=== PATIENT | male | born 1990 | race Caucasian/White ===

== ENCOUNTER 2016-10-02 22:30 | Emergency (ER) | payer MEDICAID ==
[2016-10-02 22:56] VITALS: BP 148/91
[2016-10-02] MEDS ORDERED: Ketorolac 60 MG/2 ML SDV IM ONE (23:04)
--- NOTE | 2016-10-02 23:06 | EDM.PDOC ---
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: Reports: NSAIDS right knee Pain Score (Numeric/FACES): 10 - Related Data Allergies Allergy/AdvReac Type Severity Reaction Status Date / Time codeine Allergy Hives Verified 10/02/16 23:33 Home Meds: Home Meds NK [No Known Home Meds] 02/07/16 [History] Past Medical History - Past Health History Medical/Surgical History: Denies Medical/Surgical History Social & Family History - Tobacco Use Smoking Status *Q: Current Every Day Smoker Years of Tobacco use: 8 Packs/Tins Daily: 0.5 Used Tobacco, but Quit: No Second Hand Smoke Exposure: Yes - Caffeine Use Caffeine Use: Reports: None - Alcohol Use Days Per Week of Alcohol Use: 0 - Recreational Drug Use Recreational Drug Use: No Review of Systems - Review of Systems Review Of Systems: See Below Musculoskeletal: Reports: Joint Pain (The pain) Neurological: Reports: No Symptoms ED EXAM, GENERAL - Physical Exam Exam: See Below Free Text/Narrative:: Examination right knee on appreciate any erythema there is no edema noted does not tolerate much on exam he has joint line tenderness lateral aspect will not tolerate an anterior drawer Mendiola or valgus maneuvers Exam Limited By: No Limitations General Appearance: Alert, WD/WN, No Apparent Distress Course - Vital Signs Last Recorded V/S: Last Vital Signs Temp 99.1 F 10/02/16 22:54 Pulse 90 10/02/16 22:54 Resp 20 10/02/16 22:54 BP 148/91 H 10/02/16 22:54 Pulse Ox 95 10/02/16 22:54 - Orders/Labs/Meds Orders: Active Orders 24 hr Category Date Time Status Knee 3V Rt [CR] Stat Exams 10/02/16 23:04 Taken Meds: Medications Discontinued Medications Generic Name Dose Route Start Last Admin Trade Name Freq PRN Reason Stop Dose Admin Ketorolac Tromethamine 60 mg 10/02/16 23:04 10/02/16 23:34 Toradol IM 10/02/16 23:05 60 mg ONETIME ONE Administration Departure - Departure Time of Disposition: 00:02 Disposition: Home, Self-Care 01 Condition: Fair Clinical Impression: Strain of right knee Qualifiers: Encounter type: initial encounter Qualified Code(s): S86.911A - Strain of unspecified muscle(s) and tendon(s) at lower leg level, right leg, initial encounter - Discharge Information Forms: ED Department Discharge Additional Instructions: Use ibuprofen for baseline pain control, use hydrocodone for breakthrough pain, orthopedics will call you for follow-up appointment - My Orders Last 24 Hours: My Active Orders 10/02/16 23:04 Knee 3V Rt [CR] Stat - Assessment/Plan Last 24 Hours: My Active Orders 10/02/16 23:04 Knee 3V Rt [CR] Stat Plan: Assessment Acuity = acute Site and laterality = right knee strain Etiology = secondary to a twisting injury Manifestations = pain Location of injury = Home Lab values = knee x-ray I did review films myself I cannot appreciate any acute process, the official read from radiology is pending Plan He is provided 10 hydrocodone for pain, knee brace and crutches follow-up with orthopedics next, Patient was in agreement with the plan all questions were answered, they were instructed to return to the emergency department or call for worsening symptoms. This note was dictated using [employer] voice recognition software please call with any questions.
--- NOTE | 2016-10-04 09:20 | CR ---
Knee 3V Rt HISTORY: Twisting injury. COMPARISON: None FINDINGS: No fracture or effusion. No bony destructive process. Good joint space preservation.
== END 2016-10-03 00:52 | disposition home or self-care (01) ==
LOC: JP.ED 22:30
DX: S86.911A Strain of unspecified muscle(s) and tendon(s) at lower leg level, right leg, initial encounter (principal); F17.210 Nicotine dependence, cigarettes, uncomplicated; Z88.5 Allergy status to narcotic agent; W18.40XA Slipping, tripping and stumbling without falling, unspecified, initial encounter
CPT/HCPCS: 73562; 96372; 99284; J1885; 99283

== ENCOUNTER 2018-06-19 01:04 | Emergency (ER) | payer MEDICAID ==
[2018-06-19 01:25] VITALS: BP 188/121
--- NOTE | 2018-06-19 01:35 | EDM.PDOC ---
ED HPI GENERAL MEDICAL PROBLEM - General Chief Complaint: ENT Problem Stated Complaint: RIGHT SIDE TOOTHACHE Time Seen by Provider: 06/19/18 01:25 Source of Information: Reports: Patient History Limitations: Reports: No Limitations - History of Present Illness INITIAL COMMENTS - FREE TEXT/NARRATIVE: 28-year-old male with right mandibular dental pain for the past several weeks since fracturing the posterior aspect of his second canine. Tonight he just couldn't get comfortable, pain is radiating up into the right cheek. No significant swelling or fever. He is taking "lots of ibuprofen". Onset: Gradual Duration: Week(s): (2 weeks) Location: Reports: Face Quality: Reports: Sharp, Stabbing Severity: Moderate Right Lower Jaw Pain Score (Numeric/FACES): 10 - Related Data Allergies Allergy/AdvReac Type Severity Reaction Status Date / Time codeine Allergy Hives Verified 06/19/18 01:15 Home Meds: Home Meds NK [No Known Home Meds] 02/07/16 [History] Past Medical History - Past Health History Medical/Surgical History: Denies Medical/Surgical History HEENT History: Reports: None, Impaired Vision Cardiovascular History: Reports: None Respiratory History: Reports: None Gastrointestinal History: Reports: None Genitourinary History: Reports: Renal Calculus Musculoskeletal History: Reports: None Neurological History: Reports: None Psychiatric History: Reports: Depression Endocrine/Metabolic History: Reports: None Hematologic History: Reports: None Immunologic History: Reports: None Oncologic (Cancer) History: Reports: None Dermatologic History: Reports: None - Infectious Disease History Infectious Disease History: Reports: Chicken Pox - Past Surgical History HEENT Surgical History: Reports: None Cardiovascular Surgical History: Reports: None Respiratory Surgical History: Reports: None GI Surgical History: Reports: None Male Surgical History: Reports: Lithotripsy (ESWL) Endocrine Surgical History: Reports: None Neurological Surgical History: Reports: None Dermatological Surgical History: Reports: None Social & Family History - Tobacco Use Smoking Status *Q: Current Every Day Smoker Years of Tobacco use: 12 Packs/Tins Daily: 0.3 - Caffeine Use Caffeine Use: Reports: Coffee - Recreational Drug Use Recreational Drug Use: No ED ROS ENT - Review of Systems Review Of Systems: See Below Constitutional: Denies: Fever HEENT: Reports: Dental Pain Respiratory: Denies: Shortness of Breath Cardiovascular: Denies: Chest Pain GI/Abdominal: Denies: Nausea, Vomiting Skin: Denies: Erythema Neurological: Reports: Headache ED EXAM, ENT - Physical Exam Exam: See Below Exam Limited By: No Limitations General Appearance: Alert, Mild Distress (Patient is significantly uncomfortable ) Mouth/Throat: Other (The posterior aspect of the second canine on the right mandible is completely broken off, there is some gingival erythema.) Course - Vital Signs Last Recorded V/S: Last Vital Signs Temp 95.9 F 06/19/18 01:24 Pulse 95 06/19/18 01:24 Resp 18 06/19/18 01:24 BP 188/121 H 06/19/18 01:24 Pulse Ox 97 06/19/18 01:24 - Re-Assessments/Exams Free Text/Narrative Re-Assessment/Exam: 06/19/18 01:33 I offered a dental block but the patient is "not a fan of needles". He was started on penicillin VK 500 mg 4 times a day and given 10 hydrocodone for extra pain control. He has an appointment with the dentist in [place] 2 weeks, I offered a referral to our dental clinic but he wanted to wait for his appointment but if he changes his mind to let us know. Departure - Departure Time of Disposition: 01:39 Disposition: Home, Self-Care 01 Condition: Good Clinical Impression: Dental abscess - Discharge Information Instructions: Dental Abscess, [id number] Referrals: PCP,None [Primary Care Provider] - Forms: ED Department Discharge Care Plan Goals: Take antibiotic 4 times a day, continue ibuprofen full dose, and add hydrocodone as prescribed for extra pain control. Consider rechecking in 2-3 days if not improving satisfactorily for a dental appointment that is sooner than your appointment in [place].
== END 2018-06-19 01:40 | disposition home or self-care (01) ==
LOC: JP.ED 01:04
DX: K04.7 Periapical abscess without sinus (principal); F17.210 Nicotine dependence, cigarettes, uncomplicated; Z88.5 Allergy status to narcotic agent
CPT/HCPCS: 99282

== ENCOUNTER 2018-09-20 13:40 | Emergency (ER) | payer MEDICAID ==
[2018-09-20 13:53] VITALS: BP 148/101; PULSE 98
[2018-09-20] MEDS ORDERED: traMADol 50 MG Tab PO ONE (14:22)
--- NOTE | 2018-09-20 14:45 | CRLCR ---
HISTORY: Trauma. TECHNIQUE: Two views of the chest. COMPARISON: No prior. FINDINGS: Mildly shallow inspiration. No consolidation or pulmonary edema. No pneumothorax or pleural effusion. Cardiac size within normal limits. Mild degenerative changes of the spine. Minor anterior wedging of a few lower thoracic vertebral bodies. IMPRESSION: 1. No acute cardiopulmonary disease. 2. Minor anterior wedging of a few lower thoracic vertebral bodies of uncertain chronicity though potentially chronic. Dictated by Harjeet Oh MD @ 09/20/2018 2:44:59 PM Dictated by: Harjeet Oh MD @ 09/20/2018 14:45:04 (Electronically Signed)
--- NOTE | 2018-09-20 15:28 | EDM.PDOC ---
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 pain is at nipple line and radiates around his chest to his back. pain with deep inhalation. generally healthy. no pain on midline of back. Middle Chest Pain Score (Numeric/FACES): 10 - Related Data Allergies Allergy/AdvReac Type Severity Reaction Status Date / Time codeine Allergy Hives Verified 09/20/18 13:55 Home Meds: Home Meds Sertraline [Zoloft] 50 mg PO DAILY 09/20/18 [History] Past Medical History - Past Health History Medical/Surgical History: Denies Medical/Surgical History HEENT History: Reports: None, Impaired Vision Cardiovascular History: Reports: None Respiratory History: Reports: None Gastrointestinal History: Reports: None Genitourinary History: Reports: Renal Calculus Musculoskeletal History: Reports: None Neurological History: Reports: None Psychiatric History: Reports: Depression Endocrine/Metabolic History: Reports: None Hematologic History: Reports: None Immunologic History: Reports: None Oncologic (Cancer) History: Reports: None Dermatologic History: Reports: None - Infectious Disease History Infectious Disease History: Reports: Chicken Pox - Past Surgical History Head Surgeries/Procedures: Reports: Other (See Below) HEENT Surgical History: Reports: None Male Surgical History: Reports: Lithotripsy (ESWL) Neurological Surgical History: Reports: None Dermatological Surgical History: Reports: None Social & Family History - Tobacco Use Smoking Status *Q: Current Every Day Smoker Years of Tobacco use: 15 Packs/Tins Daily: 1 Second Hand Smoke Exposure: No - Caffeine Use Caffeine Use: Reports: Coffee, Energy Drinks, Soda - Recreational Drug Use Recreational Drug Use: No ED ROS GENERAL - Review of Systems Review Of Systems: See Below Constitutional: Denies: Fever, Chills Respiratory: Denies: Shortness of Breath, Wheezing Cardiovascular: Denies: Chest Pain ED EXAM, GENERAL - Physical Exam Exam: See Below Exam Limited By: No Limitations General Appearance: Alert, WD/WN, No Apparent Distress Head: Atraumatic, Normocephalic Neck: Normal Inspection, Supple, Non-Tender, Full Range of Motion Respiratory/Chest: No Respiratory Distress, Lungs Clear, Normal Breath Sounds, No Accessory Muscle Use, Chest Non-Tender, Other (pain on palpation right chest wall at rib 4 and 5). No: Crackles, Rhonchi, Wheezing Cardiovascular: Normal Peripheral Pulses, Regular Rate, Rhythm GI/Abdominal: Normal Bowel Sounds, Soft, Non-Tender Neurological: Alert, Oriented, Normal Cognition, Normal Gait Psychiatric: Normal Affect, Normal Mood Skin Exam: Warm, Dry, Intact, Normal Color Course - Vital Signs Last Recorded V/S: Last Vital Signs Temp 36.6 C 09/20/18 13:52 Pulse 98 09/20/18 13:54 Resp 20 09/20/18 13:54 BP 148/101 H 09/20/18 13:54 Pulse Ox 98 09/20/18 13:54 - Orders/Labs/Meds Meds: Medications Discontinued Medications Generic Name Dose Route Start Last Admin Trade Name Freq PRN Reason Stop Dose Admin Tramadol HCl 100 mg 09/20/18 14:22 09/20/18 14:43 Ultram PO 09/20/18 14:23 100 mg ONETIME ONE Administration Departure - Departure Time of Disposition: 15:25 Disposition: Home, Self-Care 01 Condition: Good Clinical Impression: Chest wall injury Qualifiers: Encounter type: initial encounter Qualified Code(s): S29.9XXA - Unspecified injury of thorax, initial encounter - Discharge Information *PRESCRIPTION DRUG MONITORING PROGRAM REVIEWED*: Not Applicable *COPY OF PRESCRIPTION DRUG MONITORING REPORT IN PATIENT ANTONIET[place]: Not Applicable Instructions: Blunt Chest Trauma Referrals: PCP,None [Primary Care Provider] - Forms: ED Department Discharge Additional Instructions: ice as much as possible over the next 72 hours Ibuprofen 600-800 mg every 6 hours as needed for pain over the next 5 days take Ibuprofen three times daily may also take acetaminophen 1000 mg every 6 hours for break through pain deep breath 2 breathes every hour while a wake
== END 2018-09-20 15:35 | disposition home or self-care (01) ==
LOC: JP.ED 13:40
DX: S29.9XXA Unspecified injury of thorax, initial encounter (principal); F32.9 Major depressive disorder, single episode, unspecified; F17.210 Nicotine dependence, cigarettes, uncomplicated; Z88.5 Allergy status to narcotic agent; Z79.899 Other long term (current) drug therapy; W28.XXXA Contact with powered lawn mower, initial encounter
CPT/HCPCS: 71046; 99284; A9270

== ENCOUNTER 2018-12-21 19:55 | Emergency (ER) | payer MEDICAID ==
[2018-12-21] MEDS ORDERED: Metoprolol Tartrate 50 MG Tab PO ONE (20:30)
[2018-12-21] MEDS ORDERED: Aspirin 81 MG Tab.Chew PO ONE (20:30)
[2018-12-21] MEDS ORDERED: Sodium Chloride 0.9% 10 ML Syringe FLUSH PRN (20:31)
--- NOTE | 2018-12-21 20:37 | EDM.PDOC ---
ED HPI GENERAL MEDICAL PROBLEM - General Chief Complaint: Chest Pain Stated Complaint: CHEST TIGHTNESS,SOB Time Seen by Provider: 12/21/18 20:20 Source of Information: Reports: Patient, Old Records, RN History Limitations: Reports: No Limitations - History of Present Illness INITIAL COMMENTS - FREE TEXT/NARRATIVE: 28 yo morbidly obese, 1 ppd smoker, who has a pHx of both medical non- compliance and a reported WA at age 16(can't tell me why he has this) presents with chest pain that has been progressive since noon today. He has no SOB. Does have mild nausea. Reports numbness of L arm and L leg. No neck or back pain. No calf pain or LE edema. Took ibuprofen about 2 pm without relief. Pain is not affected by deep breathing. Denies cough. Onset: Today Onset Date: 12/21/18 Onset Time: 12:00 Duration: Hour(s):, Getting Worse Location: Reports: Chest, Upper Extremity, Left, Lower Extremity, Left Quality: Reports: Ache Severity: Moderate Improves with: Reports: None Worsens with: Reports: Other (unknown) Context: Reports: Other (see HPI) Associated Symptoms: Reports: Chest Pain, Nausea/Vomiting (no vomiting). 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 Pain Score (Numeric/FACES): 8 - Related Data Allergies Allergy/AdvReac Type Severity Reaction Status Date / Time codeine Allergy Hives Verified 12/21/18 20:13 Home Meds: Home Meds NK [No Known Home Meds] 12/21/18 [History] Past Medical History - Past Health History Medical/Surgical History: Denies Medical/Surgical History HEENT History: Reports: Impaired Vision Cardiovascular History: Reports: [place] Respiratory History: Reports: None Gastrointestinal History: Reports: None Genitourinary History: Reports: Renal Calculus Musculoskeletal History: Reports: None Neurological History: Reports: None Psychiatric History: Reports: Depression Endocrine/Metabolic History: Reports: Obesity/BMI 30+ Hematologic History: Reports: None Immunologic History: Reports: None Oncologic (Cancer) History: Reports: None Dermatologic History: Reports: None - Infectious Disease History Infectious Disease History: Reports: Chicken Pox - Past Surgical History Male Surgical History: Reports: Lithotripsy (ESWL) Social & Family History - Tobacco Use Smoking Status *Q: Current Every Day Smoker Years of Tobacco use: 15 Packs/Tins Daily: 1 - Caffeine Use Caffeine Use: Reports: Coffee, Energy Drinks, Soda - Recreational Drug Use Recreational Drug Use: Yes Recreational Drug Type: Reports: Marijuana/Hashish Recreational Drug Use Frequency: Daily ED ROS GENERAL - Review of Systems Review Of Systems: See Below Constitutional: Reports: No Symptoms HEENT: Reports: No Symptoms Respiratory: Reports: No Symptoms Cardiovascular: Reports: Chest Pain, Blood Pressure Problem (chronic). Denies: Dyspnea on Exertion, Edema, Lightheadedness, Orthopnea, Palpitations, Syncope Endocrine: Reports: No Symptoms GI/Abdominal: Reports: Nausea. Denies: Abdominal Pain, Anorexia, Black Stool, Bloody Stool, Constipation, Diarrhea, Difficulty Swallowing, Distension, Flatus , Hematemesis, Hematochezia, Vomiting : Reports: No Symptoms Musculoskeletal: Reports: No Symptoms Skin: Reports: No Symptoms Neurological: Reports: No Symptoms ED EXAM, GENERAL - Physical Exam Exam: See Below Exam Limited By: No Limitations General Appearance: Alert, WD/WN, No Apparent Distress, Obese Eye Exam: Bilateral Eye: Normal Inspection Ears: Normal External Exam, Normal Canal, Hearing Grossly Normal, Normal TMs Ear Exam: Bilateral Ear: Auricle Normal, Canal Normal, TM normal Nose: Normal Inspection, No Blood Throat/Mouth: Normal Inspection, Normal Lips, Normal Oropharynx, Normal Voice, No Airway Compromise Head: Atraumatic, Normocephalic Neck: Normal Inspection Respiratory/Chest: No Respiratory Distress, Lungs Clear, Normal Breath Sounds, No Accessory Muscle Use, Chest Non-Tender Cardiovascular: Regular Rate, Rhythm, No Edema GI/Abdominal: Normal Bowel Sounds, Soft, Non-Tender, No Distention Back Exam: Normal Inspection. No: CVA Tenderness (R), CVA Tenderness (L) Extremities: Normal Inspection, Normal Range of Motion, Non-Tender, No Pedal Edema Neurological: Alert, Oriented, CN II-XII Intact, Normal Cognition, No Motor/ Sensory Deficits Psychiatric: Normal Affect, Normal Mood Skin Exam: Warm, Dry, Intact, Normal Color, No Rash EKG INTERPRETATION EKG Date: 12/21/18 Time: 20:35 Rhythm: NSR Rate (Beats/Min): [address] [place]: Normal P-Wave: Present QRS: Normal ST-T: Normal QT: Normal Comparison: NA - No Prior EKG Course - Vital Signs Last Recorded V/S: Last Vital Signs Temp 37.5 C 12/21/18 20:15 Pulse 113 H 12/21/18 21:48 Resp 22 H 12/21/18 21:17 BP 136/103 H 12/21/18 21:48 Pulse Ox 95 12/21/18 21:17 - Orders/Labs/Meds Orders: Active Orders 24 hr Category Date Time Status Cardiac Monitoring [RC] .As Directed Care 12/21/18 20:30 Active EKG Documentation Completion [RC] ASDIRECTED Care 12/21/18 20:30 Active Sodium Chloride 0.9% [Saline Flush] Med 12/21/18 20:31 Active 10 ml FLUSH ASDIRECTED PRN Saline Lock Insert [OM.PC] Routine Oth 12/21/18 20:31 Ordered EKG 12 Lead [EK] Routine Ther 12/21/18 20:30 Ordered Medication Orders Sodium Chloride (Saline Flush) 10 ml FLUSH ASDIRECTED PRN PRN Reason: Keep Vein Open Last Admin: 12/21/18 21:05 Dose: 10 ml Labs: Laboratory Tests 12/21/18 12/21/18 12/21/18 Range/Units 20:44 20:44 20:44 WBC 10.3 (4.5-11.0) K/uL RBC 5.05 (4.30-5.90) M/uL Hgb 15.8 H (12.0-15.0) g/dL Hct 46.6 (40.0-54.0) % MCV 92 (80-98) fL MCH 31 (27-31) pg MCHC 34 (32-36) % Plt Count 192 (150-400) K/uL D-Dimer, Quantitative < 100 (0.0-400.0) ng/mL Sodium 142 (140-148) mmol/L Potassium 3.3 L (3.6-5.2) mmol/L Chloride 103 (100-108) mmol/L Carbon Dioxide 26 (21-32) mmol/L Anion Gap 16.3 H (5.0-14.0) mmol/L BUN 15 (7-18) mg/dL Creatinine 1.0 (0.8-1.3) mg/dL Est Cr Clr Drug Dosing 118.56 mL/min Estimated GFR (MDRD) > 60 (>60) Glucose 134 H (74-106) mg/dL Calcium 9.0 (8.5-10.1) mg/dL Magnesium (1.8-2.4) mg/dL Troponin I < 0.017 (0.000-0.056) ng/mL 12/21/18 Range/Units 21:15 WBC (4.5-11.0) K/uL RBC (4.30-5.90) M/uL Hgb (12.0-15.0) g/dL Hct (40.0-54.0) % MCV (80-98) fL MCH (27-31) pg MCHC (32-36) % Plt Count (150-400) K/uL D-Dimer, Quantitative (0.0-400.0) ng/mL Sodium (140-148) mmol/L Potassium (3.6-5.2) mmol/L Chloride (100-108) mmol/L Carbon Dioxide (21-32) mmol/L Anion Gap (5.0-14.0) mmol/L BUN (7-18) mg/dL Creatinine (0.8-1.3) mg/dL Est Cr Clr Drug Dosing mL/min Estimated GFR (MDRD) (>60) Glucose (74-106) mg/dL Calcium (8.5-10.1) mg/dL Magnesium 1.9 (1.8-2.4) mg/dL Troponin I (0.000-0.056) ng/mL Meds: Medications Generic Name Dose Route Start Last Admin Trade Name Freq PRN Reason Stop Dose Admin Sodium Chloride 10 ml 12/21/18 20:31 12/21/18 21:05 Saline Flush FLUSH 10 ml ASDIRECTED PRN Administration Keep Vein Open Discontinued Medications Generic Name Dose Route Start Last Admin Trade Name Freq PRN Reason Stop Dose Admin Acetaminophen 1,000 mg 12/21/18 22:13 12/21/18 22:18 Tylenol Extra Strength PO 12/21/18 22:14 1,000 mg ONETIME ONE Administration Aspirin 324 mg 12/21/18 20:30 12/21/18 21:01 Aspirin PO 12/21/18 20:31 324 mg ONETIME ONE Administration Ketorolac Tromethamine 30 mg 12/21/18 21:29 12/21/18 21:37 Toradol IVPUSH 12/21/18 21:30 30 mg ONETIME ONE Administration Metoprolol Tartrate 50 mg 12/21/18 20:30 12/21/18 21:02 Lopressor PO 12/21/18 20:31 50 mg ONETIME ONE Administration Potassium Chloride 40 meq 12/21/18 21:15 12/21/18 21:40 Potassium Chloride PO 12/21/18 21:16 40 meq ONETIME ONE Administration - Radiology Interpretation Free Text/Narrative:: CXR-neg Departure - Departure Time of Disposition: 22:25 Disposition: Home, Self-Care 01 Condition: Fair Clinical Impression: Atypical chest pain Clinical Impression: (Ruled Out): Nonspecific chest pain Instructions: Nonspecific Chest Pain, [id number] Referrals: Jacquie Delarosa DO [Primary Care Provider] - Forms: ED Department Discharge Additional Instructions: Take acetaminophen and/or ibuprofen as needed for pain relief, follow the directions on the package for dosing. No smoking. Take metoprolol succinate 100 mg every morning for elevated blood pressure. Recheck early next week in the clinic, return if worse. - My Orders Last 24 Hours: My Active Orders 12/21/18 20:30 Cardiac Monitoring [RC] .As Directed EKG Documentation Completion [RC] ASDIRECTED EKG 12 Lead [EK] Routine 12/21/18 20:31 Sodium Chloride 0.9% [Saline Flush] 10 ml FLUSH ASDIRECTED PRN Saline Lock Insert [OM.PC] Routine - Assessment/Plan Last 24 Hours: My Active Orders 12/21/18 20:30 Cardiac Monitoring [RC] .As Directed EKG Documentation Completion [RC] ASDIRECTED EKG 12 Lead [EK] Routine 12/21/18 20:31 Sodium Chloride 0.9% [Saline Flush] 10 ml FLUSH ASDIRECTED PRN Saline Lock Insert [OM.PC] Routine
[2018-12-21] MEDS ORDERED: Potassium Chloride 10 MEQ Cap.ER PO ONE (21:15)
[2018-12-21] MEDS ORDERED: Ketorolac 30 MG/ML SDV IVPUSH ONE (21:29)
--- NOTE | 2018-12-21 22:03 | CRLCR ---
INDICATION: chest pain TECHNIQUE: Chest 2 views. COMPARISON: 09/20/18 FINDINGS: Cardiovascular and mediastinum: Heart size and vasculature are normal in caliber and appearance. Mediastinum is within normal limits. Lungs and pleural spaces: Lungs are clear. No sign of infiltrate or mass. No sign of pleural effusion. No pneumothorax. Bones and soft tissues: No significant findings. IMPRESSION: Unremarkable chest. Dictated by: Marck Sebastian MD @ 12/21/2018 22:00:35 (Electronically Signed)
[2018-12-21] MEDS ORDERED: Acetaminophen 500 MG Tab PO ONE (22:13)
[2018-12-21 22:26] VITALS: BP 119/71; PULSE 92
== END 2018-12-21 22:36 | disposition home or self-care (01) ==
LOC: JP.ED 19:55
DX: R07.89 Other chest pain (principal); I25.2 Old myocardial infarction; E66.9 Obesity, unspecified; Z68.42 Body mass index [BMI] 45.0-49.9, adult; F17.210 Nicotine dependence, cigarettes, uncomplicated; Z88.5 Allergy status to narcotic agent
CPT/HCPCS: 36415; 71046; 80048; 83735; 84484; 85027; 85379; 93005; 96374; 99285-25; A9270-GY; J1885

== ENCOUNTER 2020-04-07 20:03 | Emergency (ER) | payer MEDICAID ==
[2020-04-07 20:26] VITALS: BP 152/111; PULSE 111
--- NOTE | 2020-04-07 20:35 | EDM.PDOC ---
ED HPI GENERAL MEDICAL PROBLEM - General Chief Complaint: Abdominal Pain Stated Complaint: L ABDOMINAL PAIN Time Seen by Provider: 04/07/20 20:20 Source of Information: Reports: Patient History Limitations: Reports: No Limitations - History of Present Illness INITIAL COMMENTS - FREE TEXT/NARRATIVE: 29-year-old male with persistent left upper quadrant and left lower anterior ariel st discomfort for the past several days. Tonight he was having trouble getting comfortable so came in to be evaluated. No fevers or chills, no nausea or vomiting. He saw an urgent care physician 3 days ago with a head cold and was given Zithromax, however his pain was bothering him before that. He mentioned the discomfort and was told to get an appointment with his regular doctor, he has one tomorrow morning but tonight he was just "too uncomfortable". He has not developed a rash over the painful area, he has no history of abdominal surgeries, no abdominal distention or recent trauma. Onset: Gradual Duration: Day(s): (At least 4 to 5 days) Location: Reports: Chest (Left upper quadrant left lower anterior chest), Abdomen Associated Symptoms: Denies: Confusion, Fever/Chills, Loss of Appetite, Malaise, Nausea/Vomiting, Shortness of Breath LUQ Pain Score (Numeric/FACES): 7 - Related Data Allergies Allergy/AdvReac Type Severity Reaction Status Date / Time codeine Allergy Hives Verified 04/07/20 20:12 Home Meds: Home Meds Azithromycin [Zithromax] 250 mg PO DAILY 04/07/20 [History] Latanoprost/Pf [Latanoprost 0.005% Eye Drop] 1 drop EYEBOTH DAILY 04/07/20 [History] dilTIAZem HCL [Diltiazem 24Hr ER (Xr)] 180 mg PO DAILY 04/07/20 [History] lisinopriL [Lisinopril] 10 mg PO DAILY 04/07/20 [History] Past Medical History - Past Health History Medical/Surgical History: Denies Medical/Surgical History HEENT History: Reports: Glaucoma, Impaired Vision Cardiovascular History: Reports: Hypertension Respiratory History: Reports: None Gastrointestinal History: Reports: None Genitourinary History: Reports: Renal Calculus Musculoskeletal History: Reports: Fracture Neurological History: Reports: None Psychiatric History: Reports: Depression Endocrine/Metabolic History: Reports: Obesity/BMI 30+ Hematologic History: Reports: None Immunologic History: Reports: None Oncologic (Cancer) History: Reports: None Dermatologic History: Reports: None - Infectious Disease History Infectious Disease History: Reports: Chicken Pox - Past Surgical History Respiratory Surgical History: Reports: None Male Surgical History: Reports: Lithotripsy (ESWL) Endocrine Surgical History: Reports: None Social & Family History - Tobacco Use Tobacco Use Status *Q: Current Every Day Tobacco User Years of Tobacco use: 16 Packs/Tins Daily: 1 - Caffeine Use Caffeine Use: Reports: Coffee - Recreational Drug Use Recreational Drug Use: Yes Recreational Drug Type: Reports: Marijuana/Hashish Recreational Drug Use Frequency: Weekly ED ROS GENERAL - Review of Systems Review Of Systems: See Below Constitutional: Denies: Fever, Chills HEENT: Reports: Other (Recently treated for a mild sore throat and head congestion) Respiratory: Reports: Cough (Minimal cough) GI/Abdominal: Reports: Abdominal Pain. Denies: Constipation, Diarrhea, Nausea, Vomiting Neurological: Denies: Headache Psychiatric: Reports: No Symptoms ED EXAM, GI/ABD - Physical Exam Exam: See Below Exam Limited By: No Limitations General Appearance: Alert, No Apparent Distress (Looks uncomfortable but not distressed) Eyes: Bilateral: Normal Appearance (No jaundice) Head: Atraumatic Respiratory/Chest: No Respiratory Distress, Lungs Clear, Other (Tender on the anterior aspect of the left lower chest, worsens as the palpation progresses onto the abdomen) Cardiovascular: Regular Rate, Rhythm, Tachycardia (Mild tachycardia) GI/Abdominal Exam: Normal Bowel Sounds, Soft, Tender (Fairly tender in the left upper quadrant with some mild guarding but no rebound tenderness.), Other (Morbidly obese) Neurological: Alert, Oriented Psychiatric: Normal Affect, Normal Mood Skin Exam: Warm, Dry Course - Vital Signs Last Recorded V/S: Last Vital Signs Temp 98 F 04/07/20 20:14 Pulse 111 H 04/07/20 20:14 Resp 18 04/07/20 20:14 BP 152/111 H 04/07/20 20:14 Pulse Ox 98 04/07/20 20:14 - Orders/Labs/Meds Orders: Active Orders 24 hr Category Date Time Status Chest 2V [CR] Routine Exams 04/07/20 20:27 Taken Labs: Laboratory Tests 04/07/20 04/07/20 Range/Units 20:40 20:40 WBC 15.5 H (4.5-11.0) K/uL RBC 5.48 (4.30-5.90) M/uL Hgb 16.5 H (12.0-15.0) g/dL Hct 50.4 (40.0-54.0) % MCV 92 (80-98) fL MCH 30 (27-31) pg MCHC 33 (32-36) % Plt Count 229 (150-400) K/uL Neut % (Auto) 62 (36-66) % Lymph % (Auto) 24 (24-44) % [place] % (Auto) 10 H (2-6) % Eos % (Auto) 4 (2-4) % Baso % (Auto) 0 (0-1) % Sodium 139 L (140-148) mmol/L Potassium 3.9 (3.6-5.2) mmol/L Chloride 104 (100-108) mmol/L Carbon Dioxide 25 (21-32) mmol/L Anion Gap 13.9 (5.0-14.0) mmol/L BUN 13 (7-18) mg/dL Creatinine 0.8 (0.8-1.3) mg/dL Est Cr Clr Drug Dosing 129.44 mL/min Estimated GFR (MDRD) > 60 (>60) Glucose 96 (74-106) mg/dL Calcium 9.0 (8.5-10.1) mg/dL Total Bilirubin 0.3 (0.2-1.0) mg/dL AST 28 (15-37) U/L ALT 69 (12-78) U/L Alkaline Phosphatase 120 H (46-116) U/L Total Protein 7.4 (6.4-8.2) g/dL Albumin 3.4 (3.4-5.0) g/dL Globulin 4.0 H (2.3-3.5) g/dL Albumin/Globulin Ratio 0.9 L (1.2-2.2) Lipase 116 (73-393) U/L - Re-Assessments/Exams Free Text/Narrative Re-Assessment/Exam: 04/07/20 20:34 CBC, CMP and lipase were obtained, 2 view chest x-ray also ordered. He may just have some persistent gastritis worsened by the Zithromax but he was told not to take antacids while taking the Zithromax. 04/07/20 21:14 White count is slightly elevated at 15,000 but all his other labs are normal. I suspect he is got some gastritis that would likely respond to some liquid antiacid. I encouraged him to take a few doses tonight, I offered him some here but he said he would just take some at home. He will keep his appointment tomorrow and take his labs with him. He can return tonight if worsening such as a fever spike or hematemesis. Departure - Departure Time of Disposition: 21:25 Disposition: Home, Self-Care 01 Clinical Impression: Abdominal pain Qualifiers: Abdominal location: left upper quadrant Qualified Code(s): R10.12 - Left upper quadrant pain Gastritis Qualifiers: Gastritis type: unspecified gastritis Chronicity: acute Gastritis bleeding: without bleeding Qualified Code(s): K29.00 - Acute gastritis without bleeding - Discharge Information Instructions: Gastritis, Adult, [id number] Referrals: Thony Estes Sr, MD [Primary Care Provider] - Forms: ED Department Discharge Care Plan Goals: Take liquid antiacid several times tonight to see if you can quiet the pain down, and recheck tomorrow as scheduled. Take your labs with you to your appointment and return sooner if worsening such as vomiting blood or fever spike. Sepsis Event Note (ED) - Evaluation Sepsis Screening Result: No Definite Risk - Focused Exam Vital Signs: Vital Signs Temp Pulse Resp BP Pulse Ox 04/07/20 20:14 98 F 111 H 18 152/111 H 98 - My Orders Last 24 Hours: My Active Orders 04/07/20 20:27 Chest 2V [CR] Routine - Assessment/Plan Last 24 Hours: My Active Orders 04/07/20 20:27 Chest 2V [CR] Routine
--- NOTE | 2020-04-08 09:12 | CR ---
CHEST: 2 view CLINICAL HISTORY:Dyspnea COMPARISON:December 2018 FINDINGS: The heart size, pulmonary vascularity and hilar structures are normal. No infiltrate effusion or pneumothorax is seen. Lung markings are exaggerated by patient's large body habitus IMPRESSION: No acute cardiopulmonary process.
== END 2020-04-07 21:25 | disposition home or self-care (01) ==
LOC: JP.ED 20:03
DX: K29.00 Acute gastritis without bleeding (principal); I10 Essential (primary) hypertension; Z72.0 Tobacco use; E66.01 Morbid (severe) obesity due to excess calories; Z88.5 Allergy status to narcotic agent; Z68.43 Body mass index [BMI] 50.0-59.9, adult; Z79.899 Other long term (current) drug therapy
CPT/HCPCS: 36415; 71046; 71046-26; 80053; 83690; 85025; 99282; 99285-25

== ENCOUNTER 2020-06-15 07:08 | Emergency (ER) | payer MEDICAID ==
[2020-06-15 07:18] VITALS: BP 151/100; PULSE 95
--- NOTE | 2020-06-15 07:39 | EDM.PDOC ---
ED HPI GENERAL MEDICAL PROBLEM - General Chief Complaint: ENT Problem Stated Complaint: SORE THROAT/EARS, HURTS TO SWALLOW Time Seen by Provider: 06/15/20 07:31 Source of Information: Reports: Patient History Limitations: Reports: No Limitations - History of Present Illness INITIAL COMMENTS - FREE TEXT/NARRATIVE: Patient states that he started having ear pressure yesterday/today--both ears feeling full/uncomfortable. He denies any sinus symptoms--no rhinorrhea, sinus congestion. He does report sore throat/discomfort. Denies N/V, F/C, SOB/difficulty breathing, or LH/dizzy Allergies--codiene PMH--morbid obesity, HTN Meds--lisinopril, diltiazem (did not take yet this morning) Tob--1ppd EtOH/Drugs--denies Bilateral Ear Pain Score (Numeric/FACES): 7 - Related Data Allergies Allergy/AdvReac Type Severity Reaction Status Date / Time codeine Allergy Hives Verified 04/07/20 20:12 Home Meds: Home Meds Latanoprost/Pf [Latanoprost 0.005% Eye Drop] 1 drop EYEBOTH DAILY 04/07/20 [History] dilTIAZem HCL [Diltiazem 24Hr ER (Xr)] 180 mg PO DAILY 04/07/20 [History] lisinopriL [Lisinopril] 10 mg PO DAILY 04/07/20 [History] Past Medical History - Past Health History Medical/Surgical History: Denies Medical/Surgical History HEENT History: Reports: Glaucoma, Impaired Vision Cardiovascular History: Reports: Hypertension Respiratory History: Reports: None Gastrointestinal History: Reports: None Genitourinary History: Reports: Renal Calculus Musculoskeletal History: Reports: Fracture Neurological History: Reports: None Psychiatric History: Reports: Depression Endocrine/Metabolic History: Reports: Obesity/BMI 30+ Hematologic History: Reports: None Immunologic History: Reports: None Oncologic (Cancer) History: Reports: None Dermatologic History: Reports: None - Infectious Disease History Infectious Disease History: Reports: Chicken Pox - Past Surgical History Head Surgeries/Procedures: Reports: Other (See Below) HEENT Surgical History: Reports: None Cardiovascular Surgical History: Reports: None Respiratory Surgical History: Reports: None GI Surgical History: Reports: None Male Surgical History: Reports: Lithotripsy (ESWL) Endocrine Surgical History: Reports: None Neurological Surgical History: Reports: None Dermatological Surgical History: Reports: None Social & Family History - Tobacco Use Tobacco Use Status *Q: Current Every Day Tobacco User Years of Tobacco use: 15 Packs/Tins Daily: 1 - Caffeine Use Caffeine Use: Reports: Coffee - Recreational Drug Use Recreational Drug Use: No ED ROS ENT - Review of Systems Review Of Systems: See Below Constitutional: Denies: Fever, Chills, Weakness, Fatigue, Night Sweats, Decreased Appetite HEENT: Reports: Ear Pain, Throat Pain. Denies: Rhinitis, Sinus Problem, Vertigo Respiratory: Reports: No Symptoms. Denies: Shortness of Breath, Wheezing, Cough Cardiovascular: Reports: No Symptoms Endocrine: Reports: No Symptoms GI/Abdominal: Reports: No Symptoms. Denies: Nausea, Vomiting : Reports: No Symptoms Musculoskeletal: Reports: No Symptoms Skin: Reports: No Symptoms Neurological: Reports: No Symptoms. Denies: Dizziness, Headache, Weakness Psychiatric: Reports: No Symptoms Hematologic/Lymphatic: Reports: No Symptoms Immunologic: Reports: No Symptoms ED EXAM, ENT - Physical Exam Exam: See Below Exam Limited By: No Limitations General Appearance: Alert, WD/WN, No Apparent Distress Eye Exam: Bilateral Eye: EOMI, Normal Inspection, PERRL Ears: Normal External Exam, Normal Canal, Hearing Grossly Normal, Normal TMs. No: TM Bulging, TM Dullness, TM Erythema, TM Fluid Nose: Normal Inspection Mouth/Throat: Normal Inspection (moist mucous membranes), Tonsillar Erythema (mild). No: Tonsillar Exudates Head: Atraumatic, Normocephalic Neck: Normal Inspection, Supple, Non-Tender, Full Range of Motion. No: Lymphadenopathy (R), Lymphadenopathy (L) Respiratory/Chest: No Respiratory Distress, Lungs Clear, Normal Breath Sounds, No Accessory Muscle Use Cardiovascular: Normal Peripheral Pulses, Regular Rate, Rhythm, No Edema, No Murmur GI/Abdominal: Normal Bowel Sounds, Soft, Non-Tender (palpatory exam limited by extreme body habitus/morbid obesity) (Male) Exam: Deferred Rectal (Males) Exam: Deferred Extremities: Normal Inspection, Normal Capillary Refill Neurological: Alert, Oriented, Normal Cognition, Normal Gait, No Motor/Sensory Deficits Psychiatric: Normal Affect, Normal Mood Skin: Warm, Dry, Intact, Normal Color Course - Vital Signs Last Recorded V/S: Last Vital Signs Temp 97 F 03/28/21 07:17 Pulse 95 06/15/20 07:17 Resp 16 06/15/20 07:17 BP 151/100 H 06/15/20 07:17 Pulse Ox 95 06/15/20 07:17 - Orders/Labs/Meds Orders: Active Orders 24 hr Category Date Time Status COVID-19/FLU A+B/RSV [MOLEC] Stat Lab 06/15/20 07:31 Ordered Labs: Microbiology 06/15/20 07:50 Throat Group A Streptococcus Rapid Screen - Final Positive Strep A Screen Departure - Departure Time of Disposition: 08:17 Disposition: Home, Self-Care 01 Condition: Good Clinical Impression: Acute streptococcal pharyngitis, Hypertension, Morbid obesity - Discharge Information *PRESCRIPTION DRUG MONITORING PROGRAM REVIEWED*: Not Applicable *COPY OF PRESCRIPTION DRUG MONITORING REPORT IN PATIENT ANTONIET[place]: Not Applicable Instructions: Hypertension, Adult, [id number], Strep Throat, Adult, Easy-to-R ead Referrals: Thony Estes Sr, MD [Primary Care Provider] - Forms: ED Department Discharge Additional Instructions: Do not share food/eating or drinking utensils with others as this will pass strep around the household Place all household toothbrushes in the propellant charge loader when you run it--after you have completed your antibiotics then replace all household toothbrushes You may return to work tomorrow without restrictions Ensure you are drinking plenty of fluids--water/juice/sports drinks of choice to stay hydrated You may try salt water gargles or throat losenges for throat pain/discomfort, acetaminophen (Tylenol) or ibuprofen (Motrin, Advil) for fever/chills/body aches We will contact you if your COVID test returns positive to discuss home quarentine/self-isoloation procedures Masking, hand washing, and social distancing help reduce illness including COVID, influenza, & strep pharyngitis Sepsis Event Note (ED) - Evaluation Sepsis Screening Result: No Definite Risk - Focused Exam Vital Signs: Vital Signs Temp Pulse Resp BP Pulse Ox 06/15/20 07:17 97 F 95 16 151/100 H 95 - My Orders Last 24 Hours: My Active Orders 06/15/20 07:31 COVID-19/FLU A+B/RSV [MOLEC] Stat - Assessment/Plan Last 24 Hours: My Active Orders 06/15/20 07:31 COVID-19/FLU A+B/RSV [MOLEC] Stat
[2020-06-15 08:29] LABS: CORONAVIRUS COVID-19 NAA NEGATIVE (NEGATIVE)
== END 2020-06-15 08:25 | disposition home or self-care (01) ==
LOC: JP.ED 07:08
DX: J02.0 Streptococcal pharyngitis (principal); I10 Essential (primary) hypertension; E66.01 Morbid (severe) obesity due to excess calories; Z68.43 Body mass index [BMI] 50.0-59.9, adult; Z72.0 Tobacco use; Z88.5 Allergy status to narcotic agent; Z79.899 Other long term (current) drug therapy; Z20.822 Contact with and (suspected) exposure to COVID-19
CPT/HCPCS: 0241U; 87880-QW; 99283

== ENCOUNTER 2021-04-26 22:39 | Emergency (ER) | payer MEDICAID ==
[2021-04-26] MEDS ORDERED: hydrOXYzine HCl 25 MG Tab PO ONE (22:55)
[2021-04-26 23:09] VITALS: BP 152/107; PULSE 104
== END 2021-04-26 23:09 | disposition home or self-care (01) ==
LOC: JP.ED 22:39
DX: L20.9 Atopic dermatitis, unspecified (principal); L03.115 Cellulitis of right lower limb; L03.116 Cellulitis of left lower limb; E66.9 Obesity, unspecified; Z68.42 Body mass index [BMI] 45.0-49.9, adult; Z88.5 Allergy status to narcotic agent; Z79.899 Other long term (current) drug therapy; Z72.0 Tobacco use
CPT/HCPCS: 99282; A9270

== ENCOUNTER 2021-11-06 17:32 | Emergency (ER) | payer MEDICAID ==
[2021-11-06 19:07] VITALS: BP 161/105; PULSE 75
[2021-11-06] MEDS ORDERED: Silver Nitrate Applicator Each TOP ONE (19:57)
[2021-11-06] MEDS ORDERED: Lidocaine 1% 20 ML MDV INJECT ONE (19:57)
== END 2021-11-06 21:00 | disposition home or self-care (01) ==
LOC: JP.ED 17:32
DX: L60.0 Ingrowing nail (principal); I10 Essential (primary) hypertension; E66.9 Obesity, unspecified; Z68.42 Body mass index [BMI] 45.0-49.9, adult; Z88.5 Allergy status to narcotic agent; Z79.899 Other long term (current) drug therapy
CPT/HCPCS: 11730; 99283-25

== ENCOUNTER 2022-03-13 01:52 | Emergency (ER) | payer BC, MEDICAID ==
[2022-03-13] MEDS ORDERED: Sodium Chloride 0.9% 10 ML Syringe FLUSH PRN (02:25)
[2022-03-13] MEDS ORDERED: Ketorolac 30 MG/ML SDV IVPUSH ONE (02:26)
[2022-03-13] MEDS ORDERED: Ondansetron 4 MG/2 ML SDV IVPUSH ONE (02:26)
[2022-03-13 03:32] VITALS: BP 128/74; PULSE 67
== END 2022-03-13 03:34 | disposition home or self-care (01) ==
LOC: JP.ED 01:52
DX: N13.2 Hydronephrosis with renal and ureteral calculous obstruction (principal); I10 Essential (primary) hypertension; F17.210 Nicotine dependence, cigarettes, uncomplicated; E66.9 Obesity, unspecified; Z68.43 Body mass index [BMI] 50.0-59.9, adult; Z88.5 Allergy status to narcotic agent; Z79.899 Other long term (current) drug therapy
CPT/HCPCS: 74176; 96374; 96375; 99284; J1885; J2405; J3490

== ENCOUNTER 2022-04-27 14:22 | Emergency (ER) | payer BC, MEDICAID ==
[2022-04-27 14:35] VITALS: BP 151/102; PULSE 88
[2022-04-27 15:38] LABS: ESTIMATED GFR 120 mL/min (>60)
== END 2022-04-27 16:13 | disposition home or self-care (01) ==
LOC: JP.ED 14:22
DX: R10.11 Right upper quadrant pain (principal); I10 Essential (primary) hypertension; F17.210 Nicotine dependence, cigarettes, uncomplicated; E66.9 Obesity, unspecified; Z68.43 Body mass index [BMI] 50.0-59.9, adult; Z88.5 Allergy status to narcotic agent; Z79.899 Other long term (current) drug therapy
CPT/HCPCS: 36415; 76705; 76705-26; 80053; 82150; 83690; 85025; 99282; 99284

== ENCOUNTER 2022-12-27 10:08 | Emergency (ER) | payer BC, MEDICAID ==
[2022-12-27 10:25] VITALS: BP 165/102; PULSE 74
[2022-12-27] MEDS ORDERED: Acetaminophen/oxyCODONE 325-5 MG Tab PO PRN (10:27)
== END 2022-12-27 10:43 | disposition home or self-care (01) ==
LOC: JP.ED 10:08
DX: K02.62 Dental caries on smooth surface penetrating into dentin (principal); I10 Essential (primary) hypertension; E66.9 Obesity, unspecified; F17.210 Nicotine dependence, cigarettes, uncomplicated; Z68.41 Body mass index [BMI] 40.0-44.9, adult; Z88.5 Allergy status to narcotic agent; Z79.899 Other long term (current) drug therapy; Z79.84 Long term (current) use of oral hypoglycemic drugs
CPT/HCPCS: 99282; A9270

== ENCOUNTER 2024-09-21 03:02 | Emergency (ER) | payer MEDICAID, OTHER ==
[2024-09-21 03:39] VITALS: BP 147/99; PULSE 74
[2024-09-21] MEDS: Ketorolac 30 MG/ML SDV IM ONE (03:43)
== END 2024-09-21 03:55 | disposition home or self-care (01) ==
LOC: JP.ED 03:02
DX: K04.7 Periapical abscess without sinus (principal); I10 Essential (primary) hypertension; F17.210 Nicotine dependence, cigarettes, uncomplicated; Z88.5 Allergy status to narcotic agent; Z79.899 Other long term (current) drug therapy; Z79.84 Long term (current) use of oral hypoglycemic drugs
CPT/HCPCS: 96372; 99283; J1885